=== PATIENT | male | born 1960 | race Caucasian/White ===

== ENCOUNTER 2020-08-19 09:27 | Outpatient (CLI) | payer MEDICARE | END 2020-08-19 09:28 | disposition home or self-care (01) | LOC: CSHWCC 09:27 | PROVIDERS: ATTEND Nurse Practitioner Family | DX: T81.89XD Other complications of procedures, not elsewhere classified, subsequent encounter (principal); T81.31XD Disruption of external operation (surgical) wound, not elsewhere classified, subsequent encounter; I87.2 Venous insufficiency (chronic) (peripheral); E11.621 Type 2 diabetes mellitus with foot ulcer; L97.509 Non-pressure chronic ulcer of other part of unspecified foot with unspecified severity; R60.0 Localized edema; E11.69 Type 2 diabetes mellitus with other specified complication; M86.171 Other acute osteomyelitis, right ankle and foot; B96.89 Other specified bacterial agents as the cause of diseases classified elsewhere; E11.42 Type 2 diabetes mellitus with diabetic polyneuropathy; I25.810 Atherosclerosis of coronary artery bypass graft(s) without angina pectoris; I77.0 Arteriovenous fistula, acquired; J01.90 Acute sinusitis, unspecified | CPT/HCPCS: 11042; 99213; G0463 ==

== ENCOUNTER 2020-08-26 11:35 | Outpatient (CLI) | payer MEDICARE | END 2020-08-26 11:36 | disposition home or self-care (01) | LOC: CSHWCC 11:35 | PROVIDERS: ATTEND Nurse Practitioner Family | DX: T81.89XD Other complications of procedures, not elsewhere classified, subsequent encounter (principal); T81.31XD Disruption of external operation (surgical) wound, not elsewhere classified, subsequent encounter; I87.2 Venous insufficiency (chronic) (peripheral); E11.621 Type 2 diabetes mellitus with foot ulcer; R60.0 Localized edema; M86.171 Other acute osteomyelitis, right ankle and foot; E11.69 Type 2 diabetes mellitus with other specified complication; B96.89 Other specified bacterial agents as the cause of diseases classified elsewhere; J01.90 Acute sinusitis, unspecified; E11.42 Type 2 diabetes mellitus with diabetic polyneuropathy; I10 Essential (primary) hypertension; I25.810 Atherosclerosis of coronary artery bypass graft(s) without angina pectoris; I77.0 Arteriovenous fistula, acquired | CPT/HCPCS: 11042; 99213; G0463 ==

== ENCOUNTER 2020-08-31 09:51 | Outpatient (CLI) | payer MEDICARE | END 2020-08-31 09:52 | disposition home or self-care (01) | LOC: CSHWCC 09:51 | PROVIDERS: ATTEND Nurse Practitioner Family | DX: T81.89XD Other complications of procedures, not elsewhere classified, subsequent encounter (principal); R60.0 Localized edema; B96.89 Other specified bacterial agents as the cause of diseases classified elsewhere; E11.42 Type 2 diabetes mellitus with diabetic polyneuropathy; E11.621 Type 2 diabetes mellitus with foot ulcer; I10 Essential (primary) hypertension; I25.810 Atherosclerosis of coronary artery bypass graft(s) without angina pectoris; I77.0 Arteriovenous fistula, acquired; I87.2 Venous insufficiency (chronic) (peripheral); J01.90 Acute sinusitis, unspecified; M86.171 Other acute osteomyelitis, right ankle and foot; T81.31XA Disruption of external operation (surgical) wound, not elsewhere classified, initial encounter | CPT/HCPCS: 11042; 99213; G0463 ==

== ENCOUNTER 2020-09-07 09:49 | Outpatient (CLI) | payer MEDICARE | END 2020-09-07 09:50 | disposition home or self-care (01) | LOC: CSHWCC 09:49 | PROVIDERS: ATTEND Nurse Practitioner Family | DX: T81.89XD Other complications of procedures, not elsewhere classified, subsequent encounter (principal); T81.31XD Disruption of external operation (surgical) wound, not elsewhere classified, subsequent encounter; I87.2 Venous insufficiency (chronic) (peripheral); E11.621 Type 2 diabetes mellitus with foot ulcer; L97.509 Non-pressure chronic ulcer of other part of unspecified foot with unspecified severity; E11.69 Type 2 diabetes mellitus with other specified complication; R60.0 Localized edema; I77.0 Arteriovenous fistula, acquired; M86.171 Other acute osteomyelitis, right ankle and foot; B96.89 Other specified bacterial agents as the cause of diseases classified elsewhere; E11.42 Type 2 diabetes mellitus with diabetic polyneuropathy; I25.810 Atherosclerosis of coronary artery bypass graft(s) without angina pectoris; J01.90 Acute sinusitis, unspecified; I10 Essential (primary) hypertension | CPT/HCPCS: 11042; 99213; G0463 ==

== ENCOUNTER 2020-09-14 09:08 | Outpatient (CLI) | payer MEDICARE | END 2020-09-14 09:09 | disposition home or self-care (01) | LOC: CSHWCC 09:08 | PROVIDERS: ATTEND Nurse Practitioner Family | DX: T81.89XD Other complications of procedures, not elsewhere classified, subsequent encounter (principal); T81.31XD Disruption of external operation (surgical) wound, not elsewhere classified, subsequent encounter; E11.621 Type 2 diabetes mellitus with foot ulcer; L97.509 Non-pressure chronic ulcer of other part of unspecified foot with unspecified severity; R60.0 Localized edema; I10 Essential (primary) hypertension; I25.810 Atherosclerosis of coronary artery bypass graft(s) without angina pectoris; I77.0 Arteriovenous fistula, acquired; I87.2 Venous insufficiency (chronic) (peripheral); J01.90 Acute sinusitis, unspecified; M86.171 Other acute osteomyelitis, right ankle and foot; B96.89 Other specified bacterial agents as the cause of diseases classified elsewhere | CPT/HCPCS: 97139; G0463; 99213 ==

== ENCOUNTER 2020-09-21 09:47 | Outpatient (CLI) | payer MEDICARE | END 2020-09-21 09:48 | disposition home or self-care (01) | LOC: CSHWCC 09:47 | PROVIDERS: ATTEND Nurse Practitioner Family | DX: T81.89XD Other complications of procedures, not elsewhere classified, subsequent encounter (principal); T81.31XD Disruption of external operation (surgical) wound, not elsewhere classified, subsequent encounter; I87.2 Venous insufficiency (chronic) (peripheral); E11.621 Type 2 diabetes mellitus with foot ulcer; E11.42 Type 2 diabetes mellitus with diabetic polyneuropathy; L97.509 Non-pressure chronic ulcer of other part of unspecified foot with unspecified severity; I10 Essential (primary) hypertension; I25.810 Atherosclerosis of coronary artery bypass graft(s) without angina pectoris; I77.0 Arteriovenous fistula, acquired; J01.90 Acute sinusitis, unspecified; M86.171 Other acute osteomyelitis, right ankle and foot; B96.89 Other specified bacterial agents as the cause of diseases classified elsewhere; R60.0 Localized edema | CPT/HCPCS: 97139; G0463; 99213 ==

== ENCOUNTER 2020-09-28 09:15 | Outpatient (CLI) | payer MEDICARE | END 2020-09-28 09:16 | disposition home or self-care (01) | LOC: CSHWCC 09:15 | PROVIDERS: ATTEND Nurse Practitioner Family | DX: T81.89XS Other complications of procedures, not elsewhere classified, sequela (principal); T81.31XS Disruption of external operation (surgical) wound, not elsewhere classified, sequela; E11.621 Type 2 diabetes mellitus with foot ulcer; E11.42 Type 2 diabetes mellitus with diabetic polyneuropathy; B96.89 Other specified bacterial agents as the cause of diseases classified elsewhere; I10 Essential (primary) hypertension; I25.810 Atherosclerosis of coronary artery bypass graft(s) without angina pectoris; I77.0 Arteriovenous fistula, acquired; I87.2 Venous insufficiency (chronic) (peripheral); J01.90 Acute sinusitis, unspecified; M86.171 Other acute osteomyelitis, right ankle and foot; R60.0 Localized edema | CPT/HCPCS: 97139; G0463; 99213 ==

== ENCOUNTER 2020-10-05 11:38 | Outpatient (CLI) | payer MEDICARE | END 2020-10-05 11:39 | disposition home or self-care (01) | LOC: CSHWCC 11:38 | PROVIDERS: ATTEND Nurse Practitioner Family | DX: T81.89XD Other complications of procedures, not elsewhere classified, subsequent encounter (principal); R60.0 Localized edema; B96.89 Other specified bacterial agents as the cause of diseases classified elsewhere; E11.42 Type 2 diabetes mellitus with diabetic polyneuropathy; E11.621 Type 2 diabetes mellitus with foot ulcer; I10 Essential (primary) hypertension; I25.810 Atherosclerosis of coronary artery bypass graft(s) without angina pectoris; I77.0 Arteriovenous fistula, acquired; I87.2 Venous insufficiency (chronic) (peripheral); J01.90 Acute sinusitis, unspecified; M86.171 Other acute osteomyelitis, right ankle and foot; T81.31XA Disruption of external operation (surgical) wound, not elsewhere classified, initial encounter; T81.89XA Other complications of procedures, not elsewhere classified, initial encounter | CPT/HCPCS: 97139; G0463; 99213 ==

== ENCOUNTER 2022-05-31 09:17 | Outpatient (CLI) | payer MEDICARE, OTHER | END 2022-05-31 09:18 | disposition home or self-care (01) | LOC: CSHWCC 09:17 | PROVIDERS: ATTEND Nurse Practitioner Family | DX: E11.621 Type 2 diabetes mellitus with foot ulcer (principal); L97.412 Non-pressure chronic ulcer of right heel and midfoot with fat layer exposed; Z98.890 Other specified postprocedural states; M19.071 Primary osteoarthritis, right ankle and foot | CPT/HCPCS: 11042; 73630; 85025; 86140; 87070; 87077; 87186; 87205; 97139; G0463; 36415; 99212 ==

== ENCOUNTER 2022-05-31 10:43 | Outpatient (CLI) | payer MEDICARE, OTHER | END 2022-05-31 10:44 | disposition home or self-care (01) | LOC: CSHRAD 10:43 | PROVIDERS: ATTEND Nurse Practitioner Family | DX: E11.621 Type 2 diabetes mellitus with foot ulcer (principal); L97.412 Non-pressure chronic ulcer of right heel and midfoot with fat layer exposed; Z98.890 Other specified postprocedural states; M19.071 Primary osteoarthritis, right ankle and foot ==

== ENCOUNTER 2022-06-14 10:20 | Outpatient (CLI) | payer MEDICARE, OTHER | END 2022-06-14 10:21 | disposition home or self-care (01) | LOC: CSHWCC 10:20 | PROVIDERS: ATTEND Nurse Practitioner Family | DX: E11.621 Type 2 diabetes mellitus with foot ulcer (principal); L97.412 Non-pressure chronic ulcer of right heel and midfoot with fat layer exposed | CPT/HCPCS: 99212; G0463 ==

== ENCOUNTER 2022-07-05 12:47 | Outpatient (CLI) | payer MEDICARE, OTHER | END 2022-07-05 12:48 | disposition home or self-care (01) | LOC: CSHWCC 12:47 | PROVIDERS: ATTEND Nurse Practitioner Family | DX: E11.621 Type 2 diabetes mellitus with foot ulcer (principal); L97.412 Non-pressure chronic ulcer of right heel and midfoot with fat layer exposed | CPT/HCPCS: 87070; 87077; 87205 ==

== ENCOUNTER 2022-07-12 14:42 | Outpatient (CLI) | payer MEDICARE, OTHER | END 2022-07-12 14:43 | disposition home or self-care (01) | LOC: CSHWCC 14:42 | PROVIDERS: ATTEND Nurse Practitioner Family | DX: E11.621 Type 2 diabetes mellitus with foot ulcer (principal); L97.412 Non-pressure chronic ulcer of right heel and midfoot with fat layer exposed | CPT/HCPCS: 11044; 97607 ==

== ENCOUNTER 2022-07-19 14:26 | Outpatient (CLI) | payer MEDICARE, OTHER | END 2022-07-19 14:27 | disposition home or self-care (01) | LOC: CSHWCC 14:26 | PROVIDERS: ATTEND Nurse Practitioner Family | DX: E11.621 Type 2 diabetes mellitus with foot ulcer (principal); L97.412 Non-pressure chronic ulcer of right heel and midfoot with fat layer exposed | CPT/HCPCS: 97607 ==

== ENCOUNTER 2022-07-26 10:08 | Outpatient (CLI) | payer MEDICARE, OTHER | END 2022-07-26 10:09 | disposition home or self-care (01) | LOC: CSHWCC 10:08 | PROVIDERS: ATTEND Nurse Practitioner Family | DX: E11.621 Type 2 diabetes mellitus with foot ulcer (principal); L97.412 Non-pressure chronic ulcer of right heel and midfoot with fat layer exposed; R60.0 Localized edema | CPT/HCPCS: 97607 ==

== ENCOUNTER 2022-07-28 08:25 | Outpatient (CLI) | payer MEDICARE, OTHER | END 2022-07-28 08:26 | disposition home or self-care (01) | LOC: CSHMRI 08:25 | PROVIDERS: ATTEND Nurse Practitioner Family | DX: E11.621 Type 2 diabetes mellitus with foot ulcer (principal); L97.412 Non-pressure chronic ulcer of right heel and midfoot with fat layer exposed; R93.6 Abnormal findings on diagnostic imaging of limbs | CPT/HCPCS: 82565 ==

== ENCOUNTER 2022-08-02 13:18 | Outpatient (CLI) | payer MEDICARE, OTHER | END 2022-08-02 13:19 | disposition home or self-care (01) | LOC: CSHWCC 13:18 | PROVIDERS: ATTEND Nurse Practitioner Family | DX: E11.621 Type 2 diabetes mellitus with foot ulcer (principal); L97.412 Non-pressure chronic ulcer of right heel and midfoot with fat layer exposed | CPT/HCPCS: 97139; 97607; G0463; 99212 ==

== ENCOUNTER 2022-08-09 10:27 | Outpatient (CLI) | payer MEDICARE, OTHER | END 2022-08-09 10:28 | disposition home or self-care (01) | LOC: CSHWCC 10:27 | PROVIDERS: ATTEND Nurse Practitioner Family | DX: E11.621 Type 2 diabetes mellitus with foot ulcer (principal); L97.412 Non-pressure chronic ulcer of right heel and midfoot with fat layer exposed | CPT/HCPCS: 97607 ==

== ENCOUNTER 2022-08-29 10:39 | Outpatient (CLI) | payer MEDICARE, OTHER | END 2022-08-29 10:40 | disposition home or self-care (01) | LOC: CSHWCC 10:39 | PROVIDERS: ATTEND Nurse Practitioner Family | DX: E11.621 Type 2 diabetes mellitus with foot ulcer (principal); L97.412 Non-pressure chronic ulcer of right heel and midfoot with fat layer exposed | CPT/HCPCS: 97607 ==

== ENCOUNTER 2022-09-12 10:30 | Outpatient (CLI) | payer MEDICARE, OTHER | END 2022-09-12 10:31 | disposition home or self-care (01) | LOC: CSHWCC 10:30 | PROVIDERS: ATTEND Nurse Practitioner Family | DX: E11.621 Type 2 diabetes mellitus with foot ulcer (principal); L97.412 Non-pressure chronic ulcer of right heel and midfoot with fat layer exposed ==

== ENCOUNTER 2022-12-26 09:17 | Outpatient (CLI) | payer SELFPAY | END 2022-12-26 09:18 | disposition home or self-care (01) | LOC: CSHWCC 09:17 | PROVIDERS: ATTEND Nurse Practitioner Family | DX: E11.621 Type 2 diabetes mellitus with foot ulcer (principal); L97.529 Non-pressure chronic ulcer of other part of left foot with unspecified severity | CPT/HCPCS: 87070; 87077; 87186; 87205; 97597; 99213; G0463 ==

== ENCOUNTER 2022-12-28 08:59 | Outpatient (CLI) | payer SELFPAY | END 2022-12-28 09:00 | disposition home or self-care (01) | LOC: CSHWCC 08:59 | PROVIDERS: ATTEND Nurse Practitioner Family | DX: E11.621 Type 2 diabetes mellitus with foot ulcer (principal); L97.529 Non-pressure chronic ulcer of other part of left foot with unspecified severity ==

== ENCOUNTER 2023-01-01 09:08 | Outpatient (CLI) | payer SELFPAY | END 2023-01-01 09:09 | disposition home or self-care (01) | LOC: CSHWCC 09:08 | PROVIDERS: ATTEND Nurse Practitioner Family | DX: E11.621 Type 2 diabetes mellitus with foot ulcer (principal); L97.529 Non-pressure chronic ulcer of other part of left foot with unspecified severity | CPT/HCPCS: 99211; G0463 ==

== ENCOUNTER 2023-01-04 13:02 | Outpatient (CLI) | payer MEDICARE | END 2023-01-04 13:03 | disposition home or self-care (01) | LOC: CSHWCC 13:02 | PROVIDERS: ATTEND Nurse Practitioner Family | DX: E11.621 Type 2 diabetes mellitus with foot ulcer (principal); L97.529 Non-pressure chronic ulcer of other part of left foot with unspecified severity | CPT/HCPCS: 99213; G0463 ==

== ENCOUNTER 2023-01-10 09:41 | Outpatient (CLI) | payer MEDICARE | END 2023-01-10 09:42 | disposition home or self-care (01) | LOC: CSHWCC 09:41 | PROVIDERS: ATTEND Nurse Practitioner Family | DX: E11.621 Type 2 diabetes mellitus with foot ulcer (principal); L97.529 Non-pressure chronic ulcer of other part of left foot with unspecified severity | CPT/HCPCS: 11042 ==

== ENCOUNTER 2023-01-17 08:38 | Outpatient (CLI) | payer MEDICARE | END 2023-01-17 08:39 | disposition home or self-care (01) | LOC: CSHWCC 08:38 | PROVIDERS: ATTEND Nurse Practitioner Family | DX: E11.621 Type 2 diabetes mellitus with foot ulcer (principal); L97.529 Non-pressure chronic ulcer of other part of left foot with unspecified severity | CPT/HCPCS: 97597 ==

== ENCOUNTER 2023-01-31 09:37 | Outpatient (CLI) | payer SELFPAY | END 2023-01-31 09:38 | disposition home or self-care (01) | LOC: CSHWCC 09:37 | PROVIDERS: ATTEND Nurse Practitioner Family | DX: E11.621 Type 2 diabetes mellitus with foot ulcer (principal); L97.529 Non-pressure chronic ulcer of other part of left foot with unspecified severity | CPT/HCPCS: 99212; G0463 ==